=== PATIENT | female | born 1990 | race Caucasian/White ===

== ENCOUNTER → 2017-10-28 | Outpatient (CLI) | payer OTHER ==
[~2017-10-28] MED LIST: AMBIEN12.5 MG PO; ANAPROX DS550 MG PO; ATIVAN1 MG PO; CIPROFLOXACIN500 MG PO; DOXYCYCLINE100 M3 PO; ESTRAC1 PO; MOTRIN600 MG PO; Motrin,Rufen800 MG PO; PRILOSEC20 M1 PO; PROZAC40 M1 PO; ULTRAM50 MG PO
== END | disposition home or self-care (01) ==
LOC: RAD 10:24
DX: M25.561 Pain in right knee (principal); M25.562 Pain in left knee

== ENCOUNTER → 2018-11-17 | Outpatient (CLI) | payer OTHER ==
[2018-11-17 12:51] LABS: BASO % 0.5 % (0.0-1.0); HEMATOCRIT 38.1 % (37.0-47.0); HEMOGLOBIN 12.4 g/dl (12.0-16.0); LYMPH # 1.8 10*3/uL (1.3-4.4); LYMPH % 29.4 % (27.0-41.0); MEAN CELL VOLUME 88.4 fl (81.0-99.0); MEAN CORPUSCULAR HGB 28.8 pg (27.0-31.0); MEAN CORPUSCULAR HGB CONC 32.5 g/dl (33.0-37.0); MONO # 0.5 10*3/uL (0.1-1.0); MONO % 7.8 % (3.0-9.0); NEUT # 3.8 10*3/uL (2.3-7.9); NEUT % 61.8 % (47.0-73.0); PLATELET COUNT AUTOMATED 311 10*3/uL (130-400); RED BLOOD COUNT 4.31 10*6/uL (4.10-5.10); RED CELL DISTRI WIDTH 14.1 % (0-14.5); WHITE BLOOD COUNT 6.2 10*3/uL (4.8-10.8)
[2018-11-17 13:11] LABS: ALBUMIN 3.6 gm/dl (3.1-4.5); ALKALINE PHOSPHATASE 88 U/L (45-117); BUN 12 mg/dl (7-24); CHLORIDE 107 mmol/L (98-107); CREATININE 0.88 mg/dL (0.55-1.02); POTASSIUM 3.8 mmol/L (3.5-5.1); SGOT/AST 11 IU/L (3-35); SGPT/ALT 22 U/L (12-78); SODIUM 140 mmol/L (136-145); TOTAL PROTEIN 7.8 gm/dL (6.4-8.2)
== END | disposition home or self-care (01) ==
LOC: LAB 12:10
PROVIDERS: Specialist
DX: L21.9 Seborrheic dermatitis, unspecified (principal); L29.9 Pruritus, unspecified; L20.9 Atopic dermatitis, unspecified

== ENCOUNTER → 2020-02-17 | Outpatient (CLI) | payer OTHER ==
[2020-02-17 11:37] LABS: HEMATOCRIT 40.5 % (37.0-47.0); LYMPH # 1.8 10*3/uL (1.3-4.4); MEAN CELL VOLUME 92.9 fl (81.0-99.0); MEAN CORPUSCULAR HGB 29.8 pg (27.0-31.0); MEAN CORPUSCULAR HGB CONC 32.1 g/dl (33.0-37.0); MEAN PLATELET VOLUME 9.7 fl (9.6-12.3); MONO # 0.5 10*3/uL (0.1-1.0); MONO % 8.7 % (3.0-9.0); NEUT % 57.1 % (47.0-73.0); PLATELET COUNT AUTOMATED 328 10*3/uL (130-400); RED BLOOD COUNT 4.36 10*6/uL (4.10-5.10); RED CELL DISTRI WIDTH 13.9 % (0-14.5); WHITE BLOOD COUNT 5.3 10*3/uL (4.8-10.8)
[2020-02-17 12:01] LABS: ALBUMIN 3.7 gm/dl (3.1-4.5); ALKALINE PHOSPHATASE 93 U/L (45-117); BUN 12 mg/dl (7-24); CHLORIDE 106 mmol/L (98-107); CREATININE 1.02 mg/dL (0.55-1.02); POTASSIUM 4.2 mmol/L (3.5-5.1); SGOT/AST 18 IU/L (3-35); SGPT/ALT 34 U/L (12-78); SODIUM 139 mmol/L (136-145)
== END | disposition home or self-care (01) ==
LOC: LAB 11:16
PROVIDERS: Specialist
DX: L25.9 Unspecified contact dermatitis, unspecified cause (principal); L30.1 Dyshidrosis [pompholyx]; Z79.891 Long term (current) use of opiate analgesic

== ENCOUNTER → 2021-05-07 | Outpatient (CLI) | payer OTHER ==
[2021-05-07 10:30] LABS: EOS # 0.1 10*3/uL (0.0-0.4); EOS % 1.9 % (1.0-4.0); HEMATOCRIT 37.7 % (37.0-47.0); LYMPH # 2.1 10*3/uL (1.3-4.4); LYMPH % 32.9 % (27.0-41.0); MEAN CELL VOLUME 93.8 fl (81.0-99.0); MEAN CORPUSCULAR HGB 29.6 pg (27.0-31.0); MEAN CORPUSCULAR HGB CONC 31.6 g/dl (33.0-37.0); MEAN PLATELET VOLUME 9.6 fl (9.6-12.3); MONO # 0.6 10*3/uL (0.1-1.0); MONO % 8.8 % (3.0-9.0); NEUT # 3.6 10*3/uL (2.3-7.9); NEUT % 56.1 % (47.0-73.0); PLATELET COUNT AUTOMATED 294 10*3/uL (130-400); RED BLOOD COUNT 4.02 10*6/uL (4.10-5.10); WHITE BLOOD COUNT 6.4 10*3/uL (4.8-10.8)
[2021-05-07 11:10] LABS: BODY FLUID WBC 486 /uL
[2021-05-07 12:08] LABS: BF LYMPHOCYTES 15 %; BF MACROPHAGES 18 %; BF MONOCYTES 24 %; BF NEUTROPHILS 28 %
[2021-05-08 11:07] LABS: ACID FAST SPEC PROCESSING Direct Inoculation (.)
== END ==
LOC: LAB 10:03
PROVIDERS: ATTEND Orthopaedic Surgery
DX: M25.561 Pain in right knee (principal)

== ENCOUNTER 2021-05-20 15:29 | Emergency (ER) | payer OTHER | END 2021-05-20 16:00 | disposition left against medical advice (07) | LOC: ED 15:29 | DX: T14.8XXA Other injury of unspecified body region, initial encounter (principal); Z53.21 Procedure and treatment not carried out due to patient leaving prior to being seen by health care provider; W54.0XXA Bitten by dog, initial encounter; Y93.89 Activity, other specified; Y92.89 Other specified places as the place of occurrence of the external cause; Y99.8 Other external cause status ==

== ENCOUNTER → 2021-05-21 | Outpatient (CLI) | payer OTHER | LOC: WOUNDCARE 11:37 | PROVIDERS: ATTEND Nurse Practitioner | DX: S51.852A Open bite of left forearm, initial encounter (principal); K21.9 Gastro-esophageal reflux disease without esophagitis; F41.9 Anxiety disorder, unspecified; F17.290 Nicotine dependence, other tobacco product, uncomplicated; Z72.89 Other problems related to lifestyle; Z79.899 Other long term (current) drug therapy; W54.0XXA Bitten by dog, initial encounter; Y93.89 Activity, other specified; Y92.89 Other specified places as the place of occurrence of the external cause; Y99.8 Other external cause status ==

== ENCOUNTER 2021-10-17 17:12 | Emergency (ER) | payer OTHER ==
[~2021-10-17] VITALS: Wt 115.7 kg
[~2021-10-17 17:12] MED LIST changes: -DUPIXENT S300 MG/2 M SQ; -FLUOXETINE HCL40 MG PO; -OMEPRAZOLE MAGN20 MG PO; -SEPTDS PO; -VENLAFAXINE H37.5 M5 PO; -VENLAFAXINE HY150 M2 PO
[2021-10-17 17:39] VITALS: BP 122/61
[2021-10-17] MEDS ORDERED: FLUOXETINE HCL40 MG PO (17:52)
[2021-10-17] MEDS ORDERED: VENLAFAXINE HY150 M2 PO (17:53)
[2021-10-17] MEDS ORDERED: OMEPRAZOLE MAGN20 MG PO (17:53)
[2021-10-17] MEDS ORDERED: VENLAFAXINE H37.5 M5 PO (17:53)
[2021-10-17] MEDS ORDERED: DUPIXENT S300 MG/2 M SQ (17:53)
[2021-10-17 18:14] LABS: BILIRUBIN Negative (Negative); BLOOD 1+ (Negative); CLARITY Cloudy (Clear); COLOR Dark Yellow (Yellow); GLUCOSE Negative (Negative); KETONE 1+ (Negative); LEUKO ESTERASE 2+ (Negative); NITRITE Negative (Negative); SPECIFIC GRAVITY >= 1.030 (1.001-1.030)
[2021-10-17 18:23] LABS: BACTERIA 3+; EPITHELIAL CELLS TNTC; MUCOUS 3+; WBC TNTC wbc/hpf (0-5)
[2021-10-17 18:34] LABS: BASO % 0.1 % (0.0-1.0); EOS # 0.2 10*3/uL (0.0-0.4); EOS % 1.5 % (1.0-4.0); HEMATOCRIT 36.9 % (37.0-47.0); LYMPH # 1.6 10*3/uL (1.3-4.4); MEAN CELL VOLUME 92.7 fl (81.0-99.0); MEAN CORPUSCULAR HGB 29.9 pg (27.0-31.0); MEAN CORPUSCULAR HGB CONC 32.2 g/dl (33.0-37.0); MEAN PLATELET VOLUME 9.9 fl (9.6-12.3); MONO # 0.7 10*3/uL (0.1-1.0); NEUT % 76.1 % (47.0-73.0); PLATELET COUNT AUTOMATED 261 10*3/uL (130-400); RED BLOOD COUNT 3.98 10*6/uL (4.10-5.10); RED CELL DISTRI WIDTH 14.2 % (0-14.5); WHITE BLOOD COUNT 10.5 10*3/uL (4.8-10.8)
[2021-10-17 18:48] LABS: ALKALINE PHOSPHATASE 97 U/L (45-117); BUN 14 mg/dl (7-24); CHLORIDE 105 mmol/L (98-107); CREATININE 1.02 mg/dL (0.55-1.02); LIPASE 82 U/L (73-393); POTASSIUM 3.6 mmol/L (3.5-5.1); SGOT/AST 5 IU/L (3-35); SGPT/ALT 21 U/L (12-78); SODIUM 135 mmol/L (136-145); TOTAL PROTEIN 7.6 gm/dL (6.4-8.2)
[2021-10-17] MEDS ORDERED: SEPTDS PO (21:51)
== END 2021-10-17 22:00 | disposition home or self-care (01) ==
LOC: ED 17:12
PROVIDERS: Physician Assistant
DX: N39.0 Urinary tract infection, site not specified (principal); Z79.899 Other long term (current) drug therapy

== ENCOUNTER → 2021-10-17 | Outpatient (CLI) | payer OTHER ==
[~2021-10-17] MED LIST changes: +DUPIXENT S300 MG/2 M SQ; +FLUOXETINE HCL40 MG PO; +OMEPRAZOLE MAGN20 MG PO; +SEPTDS PO; +VENLAFAXINE H37.5 M5 PO; +VENLAFAXINE HY150 M2 PO
== END | disposition home or self-care (01) ==
LOC: US 11:30
PROVIDERS: ATTEND Nurse Practitioner
DX: Z30.430 Encounter for insertion of intrauterine contraceptive device (principal); N83.01 Follicular cyst of right ovary; R10.2 Pelvic and perineal pain

== ENCOUNTER 2023-01-27 19:29 | Emergency (ER) | payer OTHER ==
[~2023-01-27] VITALS: Ht 170.1 cm; Wt 113.4 kg
[~2023-01-27 19:29] MED LIST changes: +DUPIXENT S300 MG/2 M SQ; +FLUOXETINE HCL40 MG PO; +OMEPRAZOLE MAGN20 MG PO; +SEPTDS PO; +VENLAFAXINE H37.5 M5 PO; +VENLAFAXINE HY150 M2 PO
[2023-01-27 19:40] VITALS: BP 128/80
[2023-01-27] MEDS ORDERED: [UNRECOGNIZED DRUG - OTHER] SQ (19:42)
[2023-01-27] MEDS ORDERED: PAXIL20 M1 PO (19:42)
[2023-01-27 20:42] LABS: BASO % 0.1 % (0.0-1.0); EOS # 0.1 10*3/uL (0.0-0.4); EOS % 1.2 % (1.0-4.0); HEMATOCRIT 39.6 % (37.0-47.0); LYMPH # 3.2 10*3/uL (1.3-4.4); LYMPH % 30.8 % (27.0-41.0); MEAN CELL VOLUME 88.2 fl (81.0-99.0); MEAN CORPUSCULAR HGB CONC 32.8 g/dl (33.0-37.0); MEAN PLATELET VOLUME 9.8 fl (9.6-12.3); MONO # 0.7 10*3/uL (0.1-1.0); MONO % 6.2 % (3.0-9.0); NEUT # 6.4 10*3/uL (2.3-7.9); NEUT % 61.5 % (47.0-73.0); PLATELET COUNT AUTOMATED 354 10*3/uL (130-400); RED BLOOD COUNT 4.49 10*6/uL (4.10-5.10); RED CELL DISTRI WIDTH 13.9 % (0-14.5); WHITE BLOOD COUNT 10.4 10*3/uL (4.8-10.8)
[2023-01-27 21:04] LABS: ALKALINE PHOSPHATASE 82 U/L (46-116); BUN 11 mg/dl (9-23); CHLORIDE 103 mmol/L (98-107); POTASSIUM 3.8 mmol/L (3.4-5.1); SGPT/ALT 22 U/L (10-49); TOTAL PROTEIN 7.4 gm/dL (6.0-8.0)
== END 2023-01-27 21:27 | disposition home or self-care (01) ==
LOC: ED 19:29
PROVIDERS: Emergency Medicine
DX: M79.661 Pain in right lower leg (principal); M79.89 Other specified soft tissue disorders; F17.290 Nicotine dependence, other tobacco product, uncomplicated; Z79.899 Other long term (current) drug therapy; X58.XXXA Exposure to other specified factors, initial encounter; Y93.64 Activity, baseball; Y92.89 Other specified places as the place of occurrence of the external cause; Y99.8 Other external cause status

== ENCOUNTER → 2023-03-27 | Day surgery (SDC) | payer OTHER ==
[~2023-03-27] VITALS: Ht 170.1 cm; Wt 120.2 kg
[~2023-03-27] MED LIST changes: +PAXIL20 M1 PO; +[UNRECOGNIZED DRUG - OTHER] SQ
[2023-03-27 06:58] VITALS: BP 138/86
[2023-03-27 07:40] VITALS: BP 86/49
[2023-03-27 07:55] VITALS: BP 114/78
[2023-03-27 08:05] VITALS: BP 133/77
== END ==
LOC: SDC 03-24 08:45
PROVIDERS: ATTEND Surgery
DX: K21.00 Gastro-esophageal reflux disease with esophagitis, without bleeding (principal); R12 Heartburn; K29.50 Unspecified chronic gastritis without bleeding; F32.A Depression, unspecified; F41.9 Anxiety disorder, unspecified; G56.00 Carpal tunnel syndrome, unspecified upper limb; M79.7 Fibromyalgia; F17.200 Nicotine dependence, unspecified, uncomplicated; Z79.899 Other long term (current) drug therapy; Z98.818 Other dental procedure status; Z98.890 Other specified postprocedural states

== ENCOUNTER → 2023-06-27 | Outpatient (CLI) | payer OTHER ==
[2023-06-28 08:09] LABS: HBSAG Negative (Negative); HEP B CORE AB, IGM Negative (Negative); HEPATITIS C ANTIBODY Non Reactive (Non Reactive)
== END | disposition home or self-care (01) ==
LOC: LAB 09:07
PROVIDERS: ATTEND Specialist
DX: L25.5 Unspecified contact dermatitis due to plants, except food (principal); L30.1 Dyshidrosis [pompholyx]; L29.9 Pruritus, unspecified; Z79.899 Other long term (current) drug therapy

== ENCOUNTER → 2023-12-09 | Outpatient (CLI) | payer OTHER ==
[2023-12-09 07:27] LABS: HEMATOCRIT 39.7 % (37.0-47.0); MEAN CELL VOLUME 94.3 fl (81.0-99.0); MEAN CORPUSCULAR HGB 30.2 pg (27.0-31.0); MEAN PLATELET VOLUME 9.8 fl (9.6-12.3); RED BLOOD COUNT 4.21 10*6/uL (4.10-5.10); RED CELL DISTRI WIDTH 13.5 % (0-14.5); WHITE BLOOD COUNT 9.2 10*3/uL (4.8-10.8)
[2023-12-09 07:46] LABS: CHOLESTEROL 224 mg/dL (<200); LDL CHOLESTEROL 137 mg/dL (9-159); TRIGLYCERIDES 227 mg/dl (<150)
[2023-12-09 07:49] LABS: ALKALINE PHOSPHATASE 73 U/L (46-116); BUN 16 mg/dl (9-23); CHLORIDE 106 mmol/L (98-107); POTASSIUM 4.1 mmol/L (3.4-5.1); SGPT/ALT 16 U/L (5-49); TOTAL PROTEIN 7.2 gm/dL (6.0-8.0)
== END | disposition home or self-care (01) ==
LOC: LAB 01:55
PROVIDERS: Specialist; ATTEND Physician Assistant
DX: Z00.00 Encounter for general adult medical examination without abnormal findings (principal); K21.9 Gastro-esophageal reflux disease without esophagitis